=== PATIENT | female | born 1990 | race American Indian/Alaskan Native ===

== ENCOUNTER 2016-07-18 16:05 | Emergency (ER) | payer OTHER ==
[~2016-07-18] VITALS: Ht 162.6 cm; Wt 57.2 kg
[2016-07-18] MEDS ORDERED: ONDANSETRON 4MG/2ML VIAL (J2405) IV ONE (16:30)
[2016-07-18] MEDS ORDERED: KETOROLAC 30 MG/ML VIAL (J1885) IV ONE (16:30)
[2016-07-18] MEDS ORDERED: NS 1,000 ML IV ONE (16:30)
[2016-07-18 17:04] LABS: BASO # 0.1 K/mm3 (0.0-0.2); BASO % 0.8 % (0.0-1.0); EOS # 0.2 K/mm3 (0.0-0.50); EOS % 2.9 % (0.0-3.0); LARGE UNSTAINED CELL # 0.2 K/mm3 (0.0-0.4); LARGE UNSTAINED CELL % 2.4 % (0.0-4.0); LYMPH # 2.2 K/mm3 (1.5-6.5); LYMPH % 28.1 % (24.0-44.0); MEAN CORPUSCULAR HEMOGLOBIN 29.9 pg (27.0-33.0); MEAN CORPUSCULAR HGB CONC 33.5 g/dl (32.0-36.5); MEAN CORPUSCULAR VOLUME 89.3 fl (80.0-96.0); MONO # 0.5 K/mm3 (0.0-0.8); MONO % 6.4 % (0.0-5.0); NEUTROPHILS # 4.8 K/mm3 (1.8-7.7); NEUTROPHILS % 59.5 % (36.0-66.0); PLATELET COUNT, AUTOMATED 246 k/mm3 (150-450); RED CELL DISTRIBUTION WIDTH 12.3 % (11.5-14.5)
[2016-07-18 17:09] LABS: CONTROL LINE HCG INT CTR LINE PRESENT
[2016-07-18 17:18] LABS: ALBUMIN 4.1 GM/DL (3.2-5.2); ALBUMIN/GLOBULIN RATIO 1.03 (1.00-1.93); ALKALINE PHOSPHATASE 105 U/L (45-117); ALT/SGPT 35 U/L (12-78); AMYLASE 30 U/L (25-115); ANION GAP 5 MEQ/L (8-16); AST/SGOT 18 U/L (15-37); BILIRUBIN,DIRECT < 0.1 MG/DL (0.0-0.2); BILIRUBIN,TOTAL 0.4 MG/DL (0.2-1.0); BLOOD UREA NITROGEN 11 MG/DL (7-18); CARBON DIOXIDE LEVEL 29 MEQ/L (21-32); CHLORIDE LEVEL 105 MEQ/L (98-107); CREATININE FOR GFR 0.79 MG/DL (0.55-1.02); GLOMERULAR FILTRATION RATE > 60.0 (>60); GLUCOSE, FASTING 85 MG/DL (70-105); POTASSIUM SERUM 3.8 MEQ/L (3.5-5.1); SODIUM LEVEL 139 MEQ/L (136-145); TOTAL PROTEIN 8.1 GM/DL (6.4-8.2)
--- NOTE | 2016-07-18 17:20 | REP ---
GALLBLADDER ULTRASOUND: HISTORY: Right upper quadrant pain. The gallbladder is contracted. The gallbladder wall measures 3.9 mm. There are no filling defects in the gallbladder. The common bile duct measures 2.5 mm. The liver and pancreas are normal in echogenicity. The right kidney measures 6 cm in transverse x 3.1 cm in AP x 10.3 cm in cephalocaudal dimensions. There is no hydronephrosis or mass. IMPRESSION: The gallbladder is contracted. There is no cholelithiasis. Signed by Armando Hernández MD 07/19/2016 08:39 A
[2016-07-18] MEDS ORDERED: ZOFR4TAB3 PO (17:32)
[2016-07-18] MEDS ORDERED: NORCOTAB PO (17:32)
[2016-07-18 17:50] VITALS: BP 122/70
== END 2016-07-18 17:55 | disposition home or self-care (01) ==
LOC: M ED 17:07
DX: R10.9 Unspecified abdominal pain (principal); Z88.0 Allergy status to penicillin
CPT/HCPCS: 76705; 80048; 80076; 81001; 82150; 83690; 84703; 85025; 87086; 96374; 96375; 99283; J1885; J2405